=== PATIENT | female | born 1995 | race Caucasian/White ===

== ENCOUNTER 2017-11-20 18:25 | Emergency (ER) | payer OTHER ==
[2017-11-20] MEDS ORDERED: Sodium Chloride 0.9% 1,000 ML IV ONE (19:11)
[2017-11-20] MEDS ORDERED: Ondansetron 4 MG/2 ML SDV IVPUSH ONE (19:11)
[2017-11-20] MEDS ORDERED: diphenhydrAMINE 50 MG/ML SDV IVPUSH ONE (19:11)
[2017-11-20] MEDS ORDERED: Ketorolac 30 MG/ML SDV IVPUSH ONE (19:11)
[2017-11-20] MEDS ORDERED: Sodium Chloride 0.9% 10 ML Syringe FLUSH PRN (19:11)
--- NOTE | 2017-11-20 19:47 | EDM.PDOC ---
ED HPI GENERAL MEDICAL PROBLEM - General Chief Complaint: Headache Stated Complaint: HEADACHE Time Seen by Provider: 11/20/17 18:57 Source of Information: Reports: Patient History Limitations: Reports: No Limitations - History of Present Illness INITIAL COMMENTS - FREE TEXT/NARRATIVE: 21-year-old female presents for evaluation and treatment of migraine headache. Patient reports headache started about 48 hours ago. States is located in the posterior parietal/occipital area. She has tried caffeine, Imitrex, Excedrin Migraine and ibuprofen without any symptom relief. She has a history of migraine headaches and states this feels similar to her previous migraines. Reports associated symptoms of nausea, vomiting, decreased appetite, blurry vision, photophobia or phonophobia. No fevers, cough or cold symptoms, double vision or numbness or tingling in extremities. Patient denies any recent head trauma. Headache Pain Score (Numeric/FACES): 9 - Related Data Allergies Allergy/AdvReac Type Severity Reaction Status Date / Time No Known Allergies Allergy Verified 11/20/17 18:31 Home Meds: Home Meds Control 1 tab PO DAILY 11/20/17 [History] SUMAtriptan [Imitrex] 50 mg PO ASDIRECTED PRN 11/20/17 [History] busPIRone [Buspar] 10 mg PO DAILY 11/20/17 [History] Past Medical History HEENT History: Reports: Impaired Vision - Past Surgical History HEENT Surgical History: Reports: Oral Surgery Social & Family History - Tobacco Use Smoking Status *Q: Current Every Day Smoker Years of Tobacco use: 7 Packs/Tins Daily: 0.5 - Caffeine Use Caffeine Use: Reports: Soda - Recreational Drug Use Recreational Drug Use: No ED ROS GENERAL - Review of Systems Review Of Systems: See Below Constitutional: Reports: Decreased Appetite. Denies: Fever HEENT: Reports: Vision Change (blurry vision), Other (reports photophobia and phonophobia) Respiratory: Denies: Cough GI/Abdominal: Reports: Nausea, Vomiting Neurological: Reports: Headache. Denies: Numbness, Tingling - Physical Exam Exam: See Below Exam Limited By: No Limitations General Appearance: Alert, WD/WN, No Apparent Distress Eye Exam: Bilateral Eye: Normal Inspection, PERRL Ears: Normal External Exam, Normal TMs Nose: Normal Inspection Throat/Mouth: Normal Inspection, Normal Lips, Normal Oropharynx, Normal Voice, No Airway Compromise Head Exam: Atraumatic, Normocephalic Neck: Normal Inspection, Supple, Non-Tender, Full Range of Motion Respiratory/Chest: No Respiratory Distress, Lungs Clear, Normal Breath Sounds Cardiovascular: Normal Peripheral Pulses, Regular Rate, Rhythm, No Murmur Neuro Exam (Abbreviated): Alert, Oriented, Normal Cognition, Normal Gait Psychiatric: Normal Affect, Normal Mood Skin Exam: Warm, Dry, Normal Color Course - Vital Signs Last Recorded V/S: Last Vital Signs Temp 36.9 C 11/20/17 18:34 Pulse 91 11/20/17 18:34 Resp 15 11/20/17 18:34 BP 121/80 11/20/17 18:34 Pulse Ox 100 11/20/17 18:34 - Orders/Labs/Meds Orders: Active Orders 24 hr Category Date Time Status Peripheral IV Care [RC] . DIRECTED Care 11/20/17 19:12 Active Peripheral IV Insertion Adult [OM.PC] Routine Oth 11/20/17 19:11 Ordered Labs: Laboratory Tests 11/20/17 Range/Units 19:20 HCG, Qual Negative (NEGATIVE) Meds: Medications Discontinued Medications Generic Name Dose Route Start Last Admin Trade Name Freq PRN Reason Stop Dose Admin Diphenhydramine HCl 50 mg 11/20/17 19:11 11/20/17 19:28 Benadryl IVPUSH 11/20/17 19:12 50 mg ONETIME ONE Administration Sodium Chloride 1,000 mls @ 999 mls/hr 11/20/17 19:11 11/20/17 19:24 Normal Saline IV 11/20/17 20:11 999 mls/hr ONETIME ONE Administration Ketorolac Tromethamine 30 mg 11/20/17 19:11 11/20/17 19:25 Toradol IVPUSH 11/20/17 19:12 30 mg ONETIME ONE Administration Ondansetron HCl 4 mg 11/20/17 19:11 11/20/17 19:24 Zofran IVPUSH 11/20/17 19:12 4 mg ONETIME ONE Administration Sodium Chloride 10 ml 11/20/17 19:11 11/20/17 19:29 Saline Flush FLUSH 10 ml ASDIRECTED PRN Administration Keep Vein Open - Re-Assessments/Exams Free Text/Narrative Re-Assessment/Exam: 11/20/17 20:50 Patient reports migraine is down to 2 out of 10. She feels comfortable with this level and is open to going home at this time. Discharge instructions as documented Departure - Departure Time of Disposition: 20:50 Disposition: Home, Self-Care 01 Condition: Good Clinical Impression: Migraine - Discharge Information Instructions: Migraine Headache Referrals: PCP,None [Primary Care Provider] - Forms: ED Department Discharge, ED Return to Work/School Form Additional Instructions: Go home and rest in a dark quiet room. make sure you are drinking plenty of fluids. [id number] Tylenol or Motrin as for headaches. Continue with your current medications as needed for migraines. Follow-up with your primary care provider if your Symptoms persist for further migraine management. Please return to the ER if your symptoms change or worsen. - My Orders Last 24 Hours: My Active Orders 11/20/17 19:11 Peripheral IV Insertion Adult [OM.PC] Routine 11/20/17 19:12 Peripheral IV Care [RC] . DIRECTED - Assessment/Plan Last 24 Hours: My Active Orders 11/20/17 19:11 Peripheral IV Insertion Adult [OM.PC] Routine 11/20/17 19:12 Peripheral IV Care [RC] . DIRECTED
== END 2017-11-20 21:01 | disposition home or self-care (01) ==
LOC: JD.ED 18:25
DX: G43.909 Migraine, unspecified, not intractable, without status migrainosus (principal); F17.210 Nicotine dependence, cigarettes, uncomplicated; Z79.899 Other long term (current) drug therapy
CPT/HCPCS: 36415; 84703; 96361; 96374; 96375; 99284; J1200; J1885; J2405; J7040; J7050